=== PATIENT | male | born 1980 | race Caucasian/White ===

== ENCOUNTER 2020-05-29 23:12 | Emergency (ER) | payer OTHER ==
[2020-05-29 23:19] VITALS: RESP 18
[2020-05-29] MEDS ORDERED: SODIUM CHLORIDE 0.9% 1,000 ML IV SCH (23:45)
[2020-05-29] MEDS ORDERED: ACETAMINOPHEN TAB 500 MG TAB PO STA (23:47)
[2020-05-29] MEDS ORDERED: ONDANSETRON 4 MG/2 ML VIAL IVP STA (23:50)
[2020-05-29] MEDS ORDERED: AMPICILLIN-SULBACTAM 3 GM in SODIUM CHLORIDE 0.9% 100 ML IVPB STA (23:50)
[2020-05-29] MEDS ORDERED: MORPHINE SULFATE 4 MG/ML SYRINGE IVP STA (23:50)
[2020-05-30] MEDS ORDERED: PROPARACAINE 0.5% OPHTH DROPS 15 ML BTL LEFT EYE STA
[2020-05-30] MEDS ORDERED: FLUORESCEIN STRIPS 1 MG STRIP LEFT EYE ONE
--- NOTE | 2020-05-30 00:07 | ED ---
General Adult HPI - General Chief complaint: ENT Stated complaint: Facial/neck swelling Time Seen by Provider: 05/29/20 23:24 Source: patient, police Mode of arrival: ambulatory Limitations: no limitations - History of Present Illness Initial comments: 39-year-old incarcerated male presents to the emergency department this evening accompanied [facility] officer for evaluation of left-sided facial pain and swelling. States his left eye became painful, red and swollen this past Tuesday; denies injury or trauma. Reports difficulty seeing out of his left eye due to the swelling. Complains of fever and reports a history of sepsis due to a dental abscess which required a prolonged hospitalization with multiple procedures. Patient states he usually does not have problems with facial acne, but since Tuesday has developed several sores on the left side of his forehead, nose, and chin. Patient also reports tenderness to his scalp, left postauricular area, and left side of his neck. Complains of mild headache as well. Patient denies any recent cough, shortness of breath, chest pain, abdominal pain, nausea, vomiting, diarrhea, constipation, back pain, numbness, tingling, dizziness, weakness, hematuria, dysuria, urinary urgency, urinary frequency, or any other complaints. - Related Data Previous Rx's Medication Instructions Recorded Ibuprofen [Motrin] 600 mg PO Q8HR PRN #30 tab 05/30/20 valACYclovir HCL 1,000 mg PO Q8H #21 tab 05/30/20 Allergies Allergy/AdvReac Type Severity Reaction Status Date / Time No Known Allergies Allergy Verified 05/29/20 23:18 Review of Systems ROS Statement: Those systems with pertinent positive or pertinent negative responses have been documented in the HPI. ROS Other: All systems not noted in ROS Statement are negative. Past Medical History Additional Past Medical History / Comment(s): 2018 intubated for lung failure, YANELI, sepsis, had NG feeding tube, has had diffiuclty swallowing. History of Any Multi-Drug Resistant Organisms: None Reported Additional Past Surgical History / Comment(s): 2018 intubated for lung failure, YANELI, sepsis, had NG feeding tube, has had diffiuclty swallowing. Smoking Status: Former smoker Past Alcohol Use History: None Reported Past Drug Use History: None Reported General Exam Limitations: no limitations (Well-developed, well-nourished male in no acute distress. Initial temperature 100.3F, pulse 101, respirations 18, blood pressure 146/105, pulse ox 97% on room air.) General appearance: alert, in no apparent distress Head exam: Present: atraumatic, normocephalic, normal inspection Eye exam: Present: other (One drop of proparacaine instilled into the left eye which was then stained with fluorescein strip and examined under UV light. No focal areas of concentrated uptake.) Expanded Eyelids: Normal Inspection: Right, Erythema: Left, Swelling: Left Pupils: Regular, Round: Bilateral Sclera/Conjunctival: Normal Inspection: Bilateral Expanded Throat exam: other (Small clear fluid-filled vesicles on the left side of the oropharynx). negative: tonsillar erythema Neck exam: Present: tenderness, lymphadenopathy (Postauricular, posterior cervical, submental, and submandibular lymphadenopathy) Respiratory exam: Present: normal lung sounds bilaterally. Absent: respiratory distress, wheezes, rales, rhonchi, stridor Cardiovascular Exam: Present: regular rate, normal rhythm, normal heart sounds. Absent: systolic murmur, diastolic murmur, rubs, gallop, clicks GI/Abdominal exam: Present: soft, normal bowel sounds. Absent: distended, tenderness, guarding, rebound, rigid Neurological exam: Present: alert, oriented X3, CN II-XII intact Psychiatric exam: Present: normal affect, normal mood Skin exam: Present: warm, dry, erythema (Significant erythema on the left side of the nose), vesicles (On the left side of the forehead. Crusted vesicles along left mandible.) Course Vital Signs 05/29/20 05/30/20 23:13 01:26 Temperature 100.3 F H 98.1 F Pulse Rate 101 H 92 Respiratory 18 18 Rate Blood Pressure 146/105 123/91 O2 Sat by Pulse 97 95 Oximetry Medical Decision Making - Medical Decision Making 39-year-old male presents to the emergency department with fever and left-sided facial swelling, left eye erythema, and vesicular rash left side of the forehead, nose, and mandible. Posterior cervical, postauricular, submental, and submandibular lymphadenopathy. 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 Patient's history is significant for sepsis related to a dental abscess and patient expressed concern that this was similar in nature. Patient does confirm that he did have chickenpox as a child. Discussed infectious process versus shingles outbreak. Lab work unremarkable. Pain controlled with medications administered to department and fever resolved. Treatment plan, including valacyclovir and Motrin, discussed with patient . Patient advised to see ophthalmology for follow-up if he develops any acute vision changes. Instructed to return to the emergency department with intolerable pain, impaired vision, severe discomfort or decreased hearing in the left ear. Patient verbalizes understanding and agrees with this plan. - Lab Data Result diagrams: 05/30/20 00:07 05/30/20 00:07 Lab Results 05/30/20 05/30/20 05/30/20 Range/Units 00:07 00:07 00:07 WBC 9.9 (3.8-10.6) k/uL RBC 5.57 (4.30-5.90) m/uL Hgb 16.2 (13.0-17.5) gm/dL Hct 48.4 (39.0-53.0) % MCV 86.9 (80.0-100.0) fL MCH 29.0 (25.0-35.0) pg MCHC 33.4 (31.0-37.0) g/dL RDW 12.4 (11.5-15.5) % Plt Count 275 (150-450) k/uL Neutrophils % 60 % Lymphocytes % 22 % Monocytes % 10 % Eosinophils % 3 % Basophils % 1 % Neutrophils # 5.9 (1.3-7.7) k/uL Lymphocytes # 2.2 (1.0-4.8) k/uL Monocytes # 1.0 (0-1.0) k/uL Eosinophils # 0.3 (0-0.7) k/uL Basophils # 0.1 (0-0.2) k/uL PT 9.4 (9.0-12.0) sec INR 0.9 (<1.2) APTT 24.9 (22.0-30.0) sec Sodium 138 (137-145) mmol/L Potassium 4.1 (3.5-5.1) mmol/L Chloride 105 (98-107) mmol/L Carbon Dioxide 24 (22-30) mmol/L Anion Gap 9 mmol/L BUN 16 (9-20) mg/dL Creatinine 0.90 (0.66-1.25) mg/dL Est GFR (CKD-EPI)AfAm >90 (>60 ml/min/1.73 sqM) Est GFR (CKD-EPI)NonAf >90 (>60 ml/min/1.73 sqM) Glucose 102 H (74-99) mg/dL Plasma Lactic Acid Ángel (0.7-2.0) mmol/L Calcium 9.7 (8.4-10.2) mg/dL Total Bilirubin 0.4 (0.2-1.3) mg/dL AST 26 (17-59) U/L ALT 24 (4-49) U/L Alkaline Phosphatase 75 (38-126) U/L Total Protein 7.7 (6.3-8.2) g/dL Albumin 4.6 (3.5-5.0) g/dL Urine Color Urine Appearance (Clear) Urine pH (5.0-8.0) Ur Specific Ramer (1.001-1.035) Urine Protein (Negative) Urine Glucose (UA) (Negative) Urine Ketones (Negative) Urine Blood (Negative) Urine Nitrite (Negative) Urine Bilirubin (Negative) Urine Urobilinogen (<2.0) mg/dL Ur Leukocyte Esterase (Negative) 05/30/20 05/30/20 Range/Units 00:07 00:48 WBC (3.8-10.6) k/uL RBC (4.30-5.90) m/uL Hgb (13.0-17.5) gm/dL Hct (39.0-53.0) % MCV (80.0-100.0) fL MCH (25.0-35.0) pg MCHC (31.0-37.0) g/dL RDW (11.5-15.5) % Plt Count (150-450) k/uL Neutrophils % % Lymphocytes % % Monocytes % % Eosinophils % % Basophils % % Neutrophils # (1.3-7.7) k/uL Lymphocytes # (1.0-4.8) k/uL Monocytes # (0-1.0) k/uL Eosinophils # (0-0.7) k/uL Basophils # (0-0.2) k/uL PT (9.0-12.0) sec INR (<1.2) APTT (22.0-30.0) sec Sodium (137-145) mmol/L Potassium (3.5-5.1) mmol/L Chloride (98-107) mmol/L Carbon Dioxide (22-30) mmol/L Anion Gap mmol/L BUN (9-20) mg/dL Creatinine (0.66-1.25) mg/dL Est GFR (CKD-EPI)AfAm (>60 ml/min/1.73 sqM) Est GFR (CKD-EPI)NonAf (>60 ml/min/1.73 sqM) Glucose (74-99) mg/dL Plasma Lactic Acid Ángel 1.2 (0.7-2.0) mmol/L Calcium (8.4-10.2) mg/dL Total Bilirubin (0.2-1.3) mg/dL AST (17-59) U/L ALT (4-49) U/L Alkaline Phosphatase (38-126) U/L Total Protein (6.3-8.2) g/dL Albumin (3.5-5.0) g/dL Urine Color Yellow Urine Appearance Clear (Clear) Urine pH 6.0 (5.0-8.0) Ur Specific Ramer 1.028 (1.001-1.035) Urine Protein Negative (Negative) Urine Glucose (UA) Negative (Negative) Urine Ketones Negative (Negative) Urine Blood Negative (Negative) Urine Nitrite Negative (Negative) Urine Bilirubin Negative (Negative) Urine Urobilinogen 2.0 (<2.0) mg/dL Ur Leukocyte Esterase Negative (Negative) Disposition Clinical Impression: Shingles outbreak Disposition: HOME SELF-CARE Condition: Good Instructions (If sedation given, give patient instructions): Shingles (ED) Additional Instructions: Take medications as directed. Follow-up with her primary care physician for recheck in 1-2 days. Return to the emergency department immediately for any new, worsening, or concerning symptoms. Prescriptions: Ibuprofen [Motrin] 600 mg PO Q8HR PRN #30 tab PRN Reason: Pain valACYclovir HCL 1,000 mg PO Q8H #21 tab Is patient prescribed a controlled substance at d/c from ED?: No Referrals: None,Stated [Primary Care Provider] - 1-2 days Time of Disposition: 01:07
[2020-05-30] MEDS: SODIUM CHLORIDE 0.9% 500 ML 500 ML IV SCH ×2 (00:09→01:06)
[2020-05-30 00:17] LABS: Basophils # (A) 0.1 k/uL (0-0.2); Basophils % (A) 1 %; Eosinophils # (A) 0.3 k/uL (0-0.7); Eosinophils % (A) 3 %; HCT 48.4 % (39.0-53.0); HGB 16.2 gm/dL (13.0-17.5); Lymphocytes # (A) 2.2 k/uL (1.0-4.8); Lymphocytes % (A) 22 %; MCHC 33.4 g/dL (31.0-37.0); MCV 86.9 fL (80.0-100.0); Mean Platelet Volume 6.7; Monocytes % (A) 10 %; Neutrophils # (A) 5.9 k/uL (1.3-7.7); Neutrophils % (A) 60 %; Platelet Count 275 k/uL (150-450); RBC 5.57 m/uL (4.30-5.90); RDW 12.4 % (11.5-15.5); WBC 9.9 k/uL (3.8-10.6)
[2020-05-30 00:23] LABS: ALT 24 U/L (4-49); AST 26 U/L (17-59); African American GFR (CKD) >90 (>60 ml/min/1.73 sqM); Albumin 4.6 g/dL (3.5-5.0); Alkaline Phosphatase 75 U/L (38-126); Anion Gap 9 mmol/L; Blood Urea Nitrogen 16 mg/dL (9-20); Calcium 9.7 mg/dL (8.4-10.2); Carbon Dioxide 24 mmol/L (22-30); Chloride 105 mmol/L (98-107); Glucose 102 mg/dL (74-99); Non-African American GFR(CKD) >90 (>60 ml/min/1.73 sqM); Potassium 4.1 mmol/L (3.5-5.1); Sodium 138 mmol/L (137-145); Total Bilirubin 0.4 mg/dL (0.2-1.3); Total Protein 7.7 g/dL (6.3-8.2)
[2020-05-30 00:31] LABS: INR 0.9 (<1.2); Partial Thromboplastin Time 24.9 sec (22.0-30.0); Prothrombin Time 9.4 sec (9.0-12.0)
[2020-05-30 00:54] LABS: Appearance,Urine Clear (Clear); Bilirubin,Urine Negative (Negative); Blood,Urine Negative (Negative); Color,Urine Yellow; Glucose,Urine (UA) Negative (Negative); Ketones,Urine Negative (Negative); Leukocyte Esterase,Urine Negative (Negative); Nitrite,Urine Negative (Negative); Protein,Urine Negative (Negative); Specific Gravity,Urine 1.028 (1.001-1.035)
[2020-05-30] MEDS ORDERED: valACYclovir 500 MG TAB PO STA (01:03)
[2020-05-30 01:27] VITALS: BP 123/91; PULSE 92; TEMP 98.1
== END 2020-05-30 01:28 | disposition home or self-care (01) ==
LOC: EC 23:12
DX: B02.9 Zoster without complications (principal); Z87.891 Personal history of nicotine dependence
CPT/HCPCS: 36415; 80053; 81003; 83605; 85025; 85610; 85730; 87040; 96361; 96374; 96375; 99283